=== PATIENT | male | born 1980 | race Caucasian/White ===

== ENCOUNTER 2016-10-19 08:58 | Emergency (ER) | payer BC ==
[2016-10-19 09:19] VITALS: BP 137/76
--- NOTE | 2016-10-19 09:59 | UC ---
Minor Trauma HPI - HPI Summary HPI Summary: "i slipped and fell last night down 5 stairs..." Pt c/o dull constant pain in right hand and right lower back. Sitting and bending worsen back pain. Pt states has taken ibuprofen that did not help pain. Fell at [employer] to go to [facility] [ End ] - History of Current Complaint Chief Complaint: UCBackPain Stated Complaint: LOW BACK PAIN/RIGHT PINKY INJURY-FALL Time Seen by Provider: 10/19/16 09:27 Hx Obtained From: Patient Onset/Duration: Sudden Onset Severity Initially: Moderate Severity Currently: Moderate Mechanism Of Injury: Fall From A Standing Position Aggravating Factor(s): Ambulation Alleviating Factor(s): Nothing - Allergies/Home Medications Allergies/Adverse Reactions: Allergies Allergy/AdvReac Type Severity Reaction Status Date / Time Penicillins Allergy Hives/Diff. Verified 10/19/16 09:19 Breathing/I tching Home Medications: Home Medications Hydrochlorothiazide TAB* [Hydrodiuril TAB*] 12.5 mg PO DAILY 10/19/16 [History Confirmed 10/19/16] Omeprazole CAP* [Prilosec CAP* 20 MG] 20 mg PO DAILY 10/19/16 [History Confirmed 10/19/16] Ramipril CAP* [Altace CAP*] 10 mg PO DAILY 10/19/16 [History Confirmed 10/19/16] PMH/Surg Hx/FS Hx/Imm Hx Previously Healthy: Yes Cardiovascular History Of: Reports: Hypertension Psychological History Of: Denies: Anxiety - Surgical History Surgical History: None Surgery Procedure, Year, and Place: vasectomy 2017 - Family History Known Family History: Positive: None - Social History Occupation: Employed Full-time Lives: With Family Alcohol Use: Occasionally Substance Use Type: None Smoking Status (MU): Never Smoked Tobacco Review of Systems Constitutional: Negative Skin: Negative Eyes: Negative ENT: Negative Respiratory: Negative Cardiovascular: Negative Gastrointestinal: Negative Genitourinary: Negative Motor: Negative Neurovascular: Negative Musculoskeletal: Arthralgia, Decreased ROM Neurological: Negative Psychological: Negative All Other Systems Reviewed And Are Negative: Yes Physical Exam Triage Information Reviewed: Yes Appearance: Well-Appearing, Well-Nourished, Pain Distress - mild Vital Signs: Initial Vital Signs Temp 97.2 F 10/19/16 09:10 Pulse 86 10/19/16 09:10 Resp 18 10/19/16 09:10 BP 137/76 10/19/16 09:10 Pulse Ox 98 10/19/16 09:10 Vital Signs Reviewed: Yes Eye Exam: Normal Neck: Positive: 1 Respiratory Exam: Normal Cardiovascular Exam: Normal Abdominal Exam: Normal Musculoskeletal Exam: Normal Musculoskeletal: Positive: ROM Limited @ - lumbar spine flexion and extension, Other: - sacral pain to palpation as well as L5 paraspinal pain. no lumbar sp tenderness no step off no sciatica. no pain in buttocks. normal hip exam. right 5th finger with swelling and decreased ROM. cap refill < 3 sec. wrist exam normal and rest of hand exam WNL and strenth 5/5. sensation intact. Neurological Exam: Normal Psychological Exam: Normal Skin Exam: Normal Minor Trauma Course/Dx - Course Course Of Treatment: No acute fracture. F/u prn. Muscle relaxer for lumbar spasms . motrin prn. patient agreeable - Differential Dx/Diagnosis Differential Diagnosis/HQI/PQRI: Abrasion(s), Contusion(s), Fracture, Dislocation, Sprain, Strain Provider Diagnoses: Sacro-lumbar back sprain with pain and right 5th digit sprain Discharge - Discharge Plan Condition: Good Disposition: HOME Prescriptions: Cyclobenzaprine (NF) [Cyclobenzaprine 5 MG (NF)] 5 mg PO BID PRN #20 tab PRN Reason: muscle spasms Patient Education Materials: Acute Low Back Pain (ED) Forms: *Work Release Referrals: Priti Garcia MD [Primary Care Provider] - 3 Days (if needed )
--- NOTE | 2016-10-19 10:21 | RAD ---
INDICATION: Right fifth finger injury. TECHNIQUE: 3 views of the right fifth finger were obtained. FINDINGS: The bones are in normal alignment. No acute fracture is seen. There is deformity of the distal fifth metacarpal most consistent with an old boxer's fracture. Joint spaces appear maintained. IMPRESSION: 1. NO EVIDENCE FOR ACUTE FRACTURE. 2. OLD BOXER'S FRACTURE OF THE FIFTH METACARPAL.
--- NOTE | 2016-10-19 10:23 | RAD ---
INDICATION: Trauma, back pain. COMPARISON: There are no prior studies available for comparison. TECHNIQUE: 5 views of the lumbar spine were obtained including lateral, oblique, AP and a coned-down lateral view of the lumbar sacral junction. FINDINGS: The vertebra are in normal alignment. No fracture is seen. Disc spaces appear maintained. There is mild degenerative disc changes at the L1-L2 level. IMPRESSION: NO EVIDENCE FOR FRACTURE.
== END 2016-10-19 10:39 | disposition home or self-care (01) ==
LOC: UCCORT 08:58
DX: S33.9XXA Sprain of unspecified parts of lumbar spine and pelvis, initial encounter (principal); S63.616A Unspecified sprain of right little finger, initial encounter; W10.9XXA Fall (on) (from) unspecified stairs and steps, initial encounter; Y93.9 Activity, unspecified; Y92.9 Unspecified place or not applicable; Z88.0 Allergy status to penicillin
CPT/HCPCS: 72110; 73140; 81003; 99202; G0463

== ENCOUNTER 2019-02-20 16:10 | Emergency (ER) | payer BC, OTHER ==
[2019-02-20] MEDS ORDERED: Lidocaine 1% MPF ** 5 ML VIAL INJ ONE (16:34)
[2019-02-20 16:37] VITALS: BP 134/89
--- NOTE | 2019-02-20 17:02 | UC ---
Skin Complaint HPI - HPI Summary HPI Summary: 39-year-old male presents with complaints of tenderness, redness, and swelling to the nail fold of the right thumb. States symptoms started 3 days ago. He has been doing warm water soaks haven't tried to drain it himself yesterday but states that the redness and swelling have continued to spread. Denies fever, chills, arthralgia, decreased range of motion, numbness, or tingling. - History of Current Complaint Chief Complaint: UCWounds Time Seen by Provider: 02/20/19 16:32 Stated Complaint: RIGHT THUMB SKIN CONCERN Hx Obtained From: Patient Pain Intensity: 2 - Allergy/Home Medications Allergies/Adverse Reactions: Allergies Allergy/AdvReac Type Severity Reaction Status Date / Time Penicillins Allergy Hives/Diff. Verified 02/20/19 16:37 Breathing/I tching Home Medications: Home Medications Aspirin 81 mg PO 02/20/19 [History] Clopidogrel TAB* [Plavix TAB*] 75 mg PO DAILY 02/20/19 [History Confirmed ] Escitalopram * [Lexapro 5 mg (NF)] 5 mg PO DAILY 02/20/19 [History Confirmed 10/06] Levocetirizine Dihydrochloride [Xyzal Allergy 24Hr] 5 mg PO 02/20/19 [History] Metoprolol Tartrate TAB* [Lopressor TAB*] 50 mg PO BID 02/20/19 [History Confirmed 02/20/19] Pantoprazole TAB * [Protonix TAB*] 40 mg PO DAILY 02/20/19 [History Confirmed ] Simvastatin [Zocor] 40 mg PO 02/20/19 [History] PMH/Surg Hx/FS Hx/Imm Hx Endocrine History: Dyslipidemia Cardiovascular History: Cardiac Disease, Hypertension GI/ History: Gastroesophageal Reflux Psychological History: Depression - Surgical History Surgical History: None Surgery Procedure, Year, and Place: vasectomy 2017 - Family History Known Family History: Positive: None - Social History Occupation: Employed Full-time Lives: With Family Alcohol Use: Occasionally Substance Use Type: None Smoking Status (MU): Never Smoked Tobacco Review of Systems All Other Systems Reviewed And Are Negative: Yes Constitutional: Negative: Chills Skin: Positive: Other - See HPI. Negative: Negative Respiratory: Positive: Negative Cardiovascular: Positive: Negative Gastrointestinal: Positive: Negative Genitourinary: Positive: Negative Motor: Negative: Weakness Neurovascular: Negative: Decreased Sensation Musculoskeletal: Negative: Arthralgia, Decreased ROM Neurological: Positive: Negative Is Patient Immunocompromised?: No Physical Exam - Summary Physical Exam Summary: GENERAL APPEARANCE: Well developed, well nourished, alert and cooperative, and appears to be in no acute distress. CARDIAC: Normal S1 and S2. No S3, S4 or murmurs. Rhythm is regular. There is no peripheral edema, cyanosis or pallor. Extremities are warm and well perfused. Capillary refill is less than 2 seconds. Peripheral pulses intact. LUNGS: Clear to auscultation without rales, rhonchi, wheezing or diminished breath sounds. ABDOMEN: Positive bowel sounds. Soft, nondistended, nontender. No guarding or rebound. No masses or hepatosplenomegally. MUSKULOSKELETAL: ROM intact to all extremities. No joint erythema or tenderness. Normal muscular development. Normal gait. EXTREMITIES: Erythema, edema, and fluctuance noted to the medial and proximal nail folds of the right thumb. No joint tenderness. Full ROM. Circulation and sensation intact. SKIN: Skin normal color, texture and turgor. Triage Information Reviewed: Yes Vital Signs: Initial Vital Signs Temp 97.2 F 02/20/19 16:33 Pulse 68 02/20/19 16:33 Resp 24 02/20/19 16:33 BP 134/89 02/20/19 16:33 Pulse Ox 99 02/20/19 16:33 Vital Signs Reviewed: Yes Procedures - Procedure Summary Procedure Summary: PROCEDURE NOTE: Incision and drainage of paronychia to right thumb with digital block. PROCEDURE: Informed consent was obtained and timeout protocol was performed prior to initiating the procedure. The skin was prepped with Betadine and the area draped in the usual manner. A digital block was performed with 1% lidocaine without epinephrine and good anesthesia was obtained. A small linear incision was made along the medial and proximal nail folds using the bevel of an 18g needle. Purulent material expressed and a wound culture obtained and sent. Bleeding was minimal. The patient tolerated the procedure well without complications. Standard post- procedure care is explained and return precautions were given. Course/Dx - Course Course Of Treatment: 39-year-old male presents with complaints of tenderness, redness, and swelling to the nail fold of the right thumb. States symptoms started 3 days ago. He has been doing warm water soaks haven't tried to drain it himself yesterday but states that the redness and swelling have continued to spread. Denies fever, chills, arthralgia, decreased range of motion, numbness, or tingling. Afebrile. Vital signs stable. Patient and area of erythema, edema, and fluctuance to the medial and proximal nail folds of the right thumb and otherwise unremarkable exam. Informed consent and an appropriate time out was performed. Good anesthesia was achieved using a digital block of the thumb. The paronychia was incised using the bevel of an 18-gauge needle, purulent drainage was expressed, and a wound culture was obtained and sent. Patient tolerated the procedure well. Patient is to start clindamycin 300 mg 3 times a day 5 days, continue doing soaks in warm water and Epsom salt solution, and use [id number] analgesics as needed for pain. He is to follow-up with his primary care provider in 3 days especially if symptoms are not improving. Anticipatory guidance and warning symptoms were reviewed with the patient. Verbalizes understanding and agrees with plan of care. - Differential Diagnoses - Skin Complaint Differential Diagnoses: Abscess, Cellulitis, MRSA - Diagnoses Provider Diagnosis: Paronychia of right thumb Discharge - Sign-Out/Discharge Documenting (check all that apply): Patient Departure All imaging exams completed and their final reports reviewed: No Studies - Discharge Plan Condition: Stable Disposition: HOME Prescriptions: Clindamycin HCl 300 mg PO TID #15 capsule Patient Education Materials: Paronychia (ED) Referrals: Priti Garcia MD [Primary Care Provider] - 3 Days Additional Instructions: You have an infection of the nailfold called a paronychia. We were able to drain the infection today. We took a culture of the wound to see what bacteria grows out and to make sure that the antibiotic prescribed to you is effective for treating the infection. Start taking clindamycin 300 mg three times a day for 5 days. Continue soaking the thumb in a warm water and Epsom salt solution 3-4 times a day. Use acetaminophen (Tylenol) or ibuprofen (Advil, Motrin) according to directions as needed for any pain. Follow-up with your primary care provider in 3 days especially if symptoms are not improving. Seek immediate medical attention in the emergency room if you develop fever greater than 100.5 F, have severe pain that is not managed with acetaminophen or ibuprofen, redness that is spreading, swelling of the thumb, or any worsening of symptoms. - Billing Disposition and Condition Condition: STABLE Disposition: Home
== END 2019-02-20 17:22 | disposition home or self-care (01) ==
LOC: UCCORT 16:10
DX: L03.011 Cellulitis of right finger (principal); Z88.0 Allergy status to penicillin; I11.9 Hypertensive heart disease without heart failure; E78.5 Hyperlipidemia, unspecified; K21.9 Gastro-esophageal reflux disease without esophagitis; F32.9 Major depressive disorder, single episode, unspecified
CPT/HCPCS: 10060; 87070; 87077; 87186; 87205; 87640; 87641; 99212; G0463